=== PATIENT | male | born 1955 | race Caucasian/White ===

== ENCOUNTER 2017-10-11 17:52 | Emergency (ER) | payer BC ==
[2017-10-11] MEDS ORDERED: NS 1,000 ML IV ONE (18:06)
[2017-10-11 18:18] LABS: PLATELET COUNT 202 10^3/uL (150-400)
--- NOTE | 2017-10-11 18:21 | EDPHY ---
H & P Stated Complaint: c/o Diarrhea/abd cramping/Chills/fevers- since Sat Time Seen by Provider: 10/11/17 17:59 HPI/ROS: This patient has a 4 day history of a diarrheal illness. After 2 days of diarrhea without other symptoms he developed fevers 2 days prior to arrival with associated chills. Had increased frequency of the diarrhea over the past 24 hr or difficulty sleeping. He took Imodium today with less diarrhea thereafter. 1st dose was at 8:00 a.m.. He took another Imodium at 4:00 p.m. This afternoon. He also took a single extra strength Tylenol at 4:00 p.m.. He notes no other exacerbating factors. He has not had any antibiotics last 6 months. ROS: Constitutional: He admits fatigue in part due to loss soup last night HEENT: No recent URI symptoms Pulmonary: No cough Cardiovascular: No lightheadedness GI: No significant abdominal pain. He reports that the diarrhea is been light brown and watery. No bloody stools. No mucus. : No dysuria, no frequency. No testicle pain Integumentary: No skin rash 10 point ROS is otherwise negative Source: Patient Exam Limitations: No limitations - Personal History Current Tetanus Diphtheria and Acellular Pertussis (TDAP): Yes - Medical/Surgical History Other PMH: GB/Shoulder - Family History Significant Family History: No pertinent family hx - Social History Smoking Status: Never smoked Alcohol Use: Rarely Drug Use: None Additional Social History: No recent foreign travel. No suspect food ingestion. No exposure to sick people Monogamous with his . - Physical Exam Exam: General Appearance: Alert, no distress. Eyes: Pupils equal and round no pallor or injection. ENT, Mouth: Mucous membranes moist. Respiratory: There are no retractions, lungs are clear to auscultation. Cardiovascular: Regular rate and rhythm. Gastrointestinal: Hyperactive bowel sounds, soft, nontender : No testicular tenderness Back: No CVA tenderness Rectal exam: Patient declines Neurological: GCS 15 Skin: Warm and dry, no rashes. Musculoskeletal: Neck is supple nontender. Extremities are symmetrical, full range of motion. Psychiatric: Mood and affect normal DIFFERENTIAL DIAGNOSIS: After history and physical exam differential diagnosis was considered for viral gastroenteritis, bacterial or parasitic dysentery, dehydration, UTI Constitutional: Initial Vital Signs Temperature (C) 37.6 C 10/11/17 18:06 Heart Rate 82 10/11/17 18:06 Respiratory Rate 18 10/11/17 18:06 Blood Pressure 143/70 H 10/11/17 18:06 O2 Sat (%) 97 10/11/17 18:06 O2 Delivery Mode Room Air Allergies/Adverse Reactions: No Known Allergies Allergy (Unverified 10/11/17 18:06) Home Medications: Medication Instructions Recorded Doxycycline Hyclate [Vibramycin 100 mg PO BID #8 cap 10/11/17 100 MG (*)] Hyoscyamine Sulfate [Levsin, 0.125 - 0.25 mg SL Q6 PRN #20 tab 10/11/17 Hyomax-Sl 0.125 mg (*)] Ondansetron Odt [Zofran Odt] 4 - 8 mg PO Q4PRN PRN #4 tab 10/11/17 Medical Decision Making ED Course/Re-evaluation: IV normal saline bolus Toradol 15mg IV and Levsin with diminished cramping and discomfort. Tylenol p.o. In addition due to ongoing fever of 101.5 despite the Toradol. Review of labs reveals a normal overall white count with the mild left shift in the differential. Hematocrit and platelets are normal I-STAT chemistries-normal Urinalysis reveals 3-5 white cells and some bacteria. Culture sent and pending. PCR stool pending Discussion: This patient is here with fevers over the past 3 days with a urinalysis is borderline positive for UTI. While he does not have dysuria he does have possibility of prostatitis. He declined prostate exam here today but given urine finding start him on doxycycline which would also cover some GI pathogens I think given lack of risk factors bacterial dysentery is unlikely in this patient. I counseled him regarding this. If his urine culture is negative then I think it is safe to stop the doxy antibiotic. The patient does not have findings consistent with sepsis. Given fevers, I advised the patient not to take Imodium throughout the day but only at night if needed for diarrhea that prevents sleep 1st dose of doxycycline given here tonight. I counseled the patient and his regarding his studies and the treatment plan. Answered all the questions prior to discharge home. They understand the need to return emergency department should she develop any significant worsening despite treatment plan. - Data Points Laboratory Results: Laboratory Results 10/11/17 18:15 10/11/17 18:15 10/11/17 10/11/17 10/11/17 19:25 18:53 18:15 WBC RBC Hgb POC Hgb 16.7 gm/dL gm/dL (13.7-17.5) Hct POC Hct 49 % % (40-51) MCV MCH MCHC RDW Plt Count MPV Neut % (Auto) Lymph % (Auto) [place] % (Auto) Eos % (Auto) Baso % (Auto) Nucleat RBC Rel Count Absolute Neuts (auto) Absolute Lymphs (auto) Absolute Monos (auto) Absolute Eos (auto) Absolute Basos (auto) Absolute Nucleated RBC Immature Gran % Immature Gran # POC Sodium 138 mEq/L mEq/L (135-145) Sodium Cancelled POC Potassium 3.4 mEq/L mEq/L (3.3-5.0) Potassium Cancelled POC Chloride 100 mEq/L mEq/L (97-110) Chloride Cancelled Carbon Dioxide Cancelled Anion Gap Cancelled POC BUN 21 mg/dL mg/dL (7-23) BUN Cancelled Creatinine Cancelled POC Creatinine 1.2 mg/dL mg/dL (0.7-1.3) Estimated GFR Cancelled Glucose Cancelled POC Glucose 114 mg/dL H mg/dL (70-100) Calcium Cancelled Urine Color OTHER Urine Appearance HAZY Urine pH 6.0 (5.0-7.5) Ur Specific [place] 1.025 (1.002-1.030) Urine Protein 1+ H (NEGATIVE) Urine Ketones 1+ H (NEGATIVE) Urine Blood NEGATIVE (NEGATIVE) Urine Nitrate NEGATIVE (NEGATIVE) Urine Bilirubin POSITIVE H (NEGATIVE) Urine Urobilinogen 0.2 EU EU (0.2-1.0) Ur Leukocyte Esterase NEGATIVE (NEGATIVE) Urine RBC NONE SEEN /hpf /hpf (0-3) Urine WBC 3-5 /hpf H /hpf (0-3) Ur Epithelial Cells 1+ /lpf /lpf (NONE-1+) Amorphous Sediment 2+ /hpf H /hpf (NONE-1+) Urine Bacteria TRACE /hpf H /hpf (NONE SEEN) Hyaline Casts 0-1 /lpf /lpf (0-1) Granular Casts 0-1 /lpf /lpf (0-1) Urine Mucus 3+ /lpf H /lpf (NONE-1+) Urine Yeast 1+ /hpf H /hpf (NONE SEEN) Urine Glucose NEGATIVE (NEGATIVE) 10/11/17 18:15 WBC 7.15 10^3/uL 10^3/uL (3.80-9.50) RBC 5.63 10^6/uL 10^6/uL (4.40-6.38) Hgb 17.6 g/dL H g/dL (13.7-17.5) POC Hgb Hct 49.7 % % (40.0-51.0) POC Hct MCV 88.3 fL fL (81.5-99.8) MCH 31.3 pg pg (27.9-34.1) MCHC 35.4 g/dL g/dL (32.4-36.7) RDW 12.5 % % (11.5-15.2) Plt Count 202 10^3/uL 10^3/uL (150-400) MPV 9.4 fL fL (8.7-11.7) Neut % (Auto) 82.1 % H % (39.3-74.2) Lymph % (Auto) 9.0 % L % (15.0-45.0) [place] % (Auto) 8.4 % % (4.5-13.0) Eos % (Auto) 0.0 % L % (0.6-7.6) Baso % (Auto) 0.4 % % (0.3-1.7) Nucleat RBC Rel Count 0.0 % % (0.0-0.2) Absolute Neuts (auto) 5.87 10^3/uL 10^3/uL (1.70-6.50) Absolute Lymphs (auto) 0.64 10^3/uL L 10^3/uL (1.00-3.00) Absolute Monos (auto) 0.60 10^3/uL 10^3/uL (0.30-0.80) Absolute Eos (auto) 0.00 10^3/uL L 10^3/uL (0.03-0.40) Absolute Basos (auto) 0.03 10^3/uL 10^3/uL (0.02-0.10) Absolute Nucleated RBC 0.00 10^3/uL 10^3/uL (0-0.01) Immature Gran % 0.1 % % (0.0-1.1) Immature Gran # 0.01 10^3/uL 10^3/uL (0.00-0.10) POC Sodium Sodium POC Potassium Potassium POC Chloride Chloride Carbon Dioxide Anion Gap POC BUN BUN Creatinine POC Creatinine Estimated GFR Glucose POC Glucose Calcium Urine Color Urine Appearance Urine pH Ur Specific [place] Urine Protein Urine Ketones Urine Blood Urine Nitrate Urine Bilirubin Urine Urobilinogen Ur Leukocyte Esterase Urine RBC Urine WBC Ur Epithelial Cells Amorphous Sediment Urine Bacteria Hyaline Casts Granular Casts Urine Mucus Urine Yeast Urine Glucose Medications Given: Discontinued Medications Acetaminophen (Tylenol) 975 mg PO EDNOW ONE Stop: 10/11/17 20:10 Last Admin: 10/11/17 20:16 Dose: Not Given Doxycycline Hyclate (Doxycycline Hyclate) 100 mg PO EDNOW ONE PRN Reason: Protocol Stop: 10/11/17 20:20 Last Admin: 10/11/17 20:29 Dose: 100 mg Hyoscyamine Sulfate (Levsin, Hyomax-Sl) 0.125 mg PO EDNOW ONE Stop: 10/11/17 18:33 Last Admin: 10/11/17 18:39 Dose: 0.125 mg Sodium Chloride (Ns) 1,000 mls @ 0 mls/hr IV EDNOW ONE; Wide Open PRN Reason: Protocol Stop: 10/11/17 18:07 Last Admin: 10/11/17 18:29 Dose: 1,000 mls Ketorolac Tromethamine (Toradol) 15 mg IVP EDNOW ONE Stop: 10/11/17 18:33 Last Admin: 10/11/17 18:39 Dose: 15 mg Point of Care Test Results: 10/11/17 18:53 POC Sodium 138 POC Potassium 3.4 POC Chloride 100 POC BUN 21 POC Creatinine 1.2 POC Glucose 114 H Departure - Departure Disposition: Home, Routine, Self-Care Clinical Impression: Acute diarrhea, Dehydration Prostatitis Qualifiers: Prostatitis type: acute Qualified Code(s): N41.0 - Acute prostatitis Condition: Good Instructions: Acute Diarrhea (ED) Additional Instructions: Diagnosis: Acute diarrhea 2. prostatitis Plan: Drink plenty fluids Levsin for cramping if needed The Zofran for nausea if needed Light diet until you feel improved Doxycycline antibiotic Take a probiotic while your on the doxycycline. Imodium only at night if needed for diarrhea that prevents sleep. Your stool pathogen result should be back by tomorrow. Will call you if there is a bacterial pathogen causing your symptoms. Most commonly, in the absence of travel or suspect food, these illnesses are due to a virus. Follow-up with primary care physician if he have any symptoms that persist beyond the next 2-3 days Return emergency department for any significant worsening despite the treatment plan Referrals: NONE *PRIMARY CARE P,. [Unknown] - As per Instructions Teressa Blanc MD [place] [place] - As per Instructions Prescriptions: Doxycycline Hyclate [Vibramycin 100 MG (*)] 100 mg PO BID #8 cap Hyoscyamine Sulfate [Levsin, Hyomax-Sl 0.125 mg (*)] 0.125 - 0.25 mg SL Q6 PRN # 20 tab PRN Reason: abdominal cramping Ondansetron Odt [Zofran Odt] 4 - 8 mg PO Q4PRN PRN #4 tab PRN Reason: Vomiting
[2017-10-11] MEDS ORDERED: HYOSCYAMINE SULFATE 0.125 MG TAB PO ONE (18:32)
[2017-10-11] MEDS ORDERED: KETOROLAC 15 MG/1 ML SDV IVP ONE (18:32)
[2017-10-11] MEDS ORDERED: KETOROLAC 15 MG/1 ML SDV ONE (18:36)
[2017-10-11] MEDS ORDERED: ACETAMINOPHEN 325 MG TAB PO ONE (20:09)
[2017-10-11] MEDS ORDERED: DOXYCYCLINE HYCLATE 100 MG CAP/TAB PO ONE (20:19)
[2017-10-11] MEDS ORDERED: DOXYCYCLINE 100 MG PREPACK#2 BTL TAKEHOME ONE (20:23)
[2017-10-11 20:41] VITALS: BP 134/72; PULSE 76; RESP 14; TEMP 101.4; O2SAT 95
== END 2017-10-11 20:30 | disposition home or self-care (01) ==
LOC: CED 17:52
DX: R19.7 Diarrhea, unspecified (principal); E86.0 Dehydration; N41.0 Acute prostatitis; E86.9 Volume depletion, unspecified
CPT/HCPCS: 81003-PO; 81015-PO; 82947-QW; 85025-PO; 96374; J1885